=== PATIENT | female | born 1975 | race Caucasian/White ===

== ENCOUNTER → 2022-03-05 13:48 | Outpatient (BNVA) | payer OTHER, SELFPAY | PROVIDERS: Family Provider Family Medicine; PCP Clinical Nurse Specialist Adult Health; Visit Provider Clinical Nurse Specialist Adult Health | DX: R19.7 Diarrhea, unspecified (principal) | CPT/HCPCS: 83630; 87177; 87209; 87338; 87493; 87506 ==

== ENCOUNTER 2022-05-21 10:09 | Day surgery (SDC) | payer OTHER, SELFPAY ==
[2022-05-19 13:38] VITALS: BMI 19.1
[2022-05-21 10:36] VITALS: BP 100/78; PULSE 100; RESP 18; TEMP 36.1; O2SAT 95
--- NOTE | 2022-05-21 10:52 | ANES.PREANE2 ---
Pre-Anesthetic Assessment Height/Weight: Height 1.65 m Weight 52.163 kg Temp Pulse Resp BP Pulse Ox O2 Del Method 97.0 F L 100 18 100/78 95 05/21/22 10:36 05/21/22 10:36 05/21/22 10:36 05/21/22 10:36 05/21/22 10:36 05/21/22 10:36 Operation Date: 05/21/22 11:30 Proposed Procedures p EGD and colonoscopy [id number],R19.7(Not Applicable) - Thuan Will DO s Colonoscopy(Not Applicable) - Thuan Will DO Familial anesthetic complications: None Was Beta Ruiz taken within 24 hours: N/A Was Clonidine taken within 24 hours: N/A Last intake: Intake Last Liquid Date 05/20/22 Last Liquid Time 20:00 Last Solid Date 05/19/22 Last Solid Time 18:00 Social No alcohol and No tobacco marijuana Exam alert, oriented x 3, clear to auscultation bilaterally and regular rate & rhythm Airway Mallampati: Class II Dentition: false GI Gastroesophageal Reflux Disease Neuropsych Anxiety, Bipolar and Depression Anesthetic Plan ASA status: 2 Anesthesia: MAC Risk of > 500 ml blood loss (7ml/kg in children): No Medications/Allergies Home Medications Medication Instructions Recorded Confirmed Last Taken Type clonazepam 2 mg tablet 2 mg PO DAILY PRN Anxiety 02/25/22 05/21/22 05/21/22 History omeprazole 40 mg capsule,delayed 40 mg PO DAILY #30 caps 02/25/22 05/21/22 Unknown Rx release vilazodone 40 mg tablet 40 mg PO DAILY 02/25/22 05/21/22 05/21/22 History olanzapine 5 mg tablet 5 mg PO QPM 05/19/22 05/21/22 05/19/22 History Allergies Allergy/AdvReac Type Severity Reaction Status Date / Time No Known Allergies Allergy Unverified 05/21/22 10:35 [facility] Anesthesia Medical History (Updated 03/04/22 @ 10:26 by Thuan Will DO) Bipolar disorder Cannabis dependence, uncomplicated Lymphadenopathy Major depressive disorder, recurrent severe without psychotic features Panic disorder [episodic paroxysmal anxiety] Surgical History (Updated 03/04/22 @ 10:20 by Thuan Will DO) History of hysterectomy Hx of lymph node excision LEFT GROIN AGE 18 Family History Mother Diabetes Social History Smoking and tobacco status: former smoker Alcohol intake: never Data Anesthesia Cardiac Studies: No Data to Display
[2022-05-21] MEDS: sodium chloride 0.9% 1,000 ML 30 ML IV (10:56)
--- NOTE | 2022-05-21 12:07 | PM.HP ---
Providers/Chief Complaint Primary Care Provider: Dontrell Ansari Chief Complaint: Diarrhea, unspecified History of Present Illness Gabriela Baig is a 46 year old female here for EGD and colonoscopy Medications/Allergies Home Medications Medication Instructions Recorded Confirmed Last Taken Type clonazepam 2 mg tablet 2 mg PO DAILY PRN Anxiety 02/25/22 05/21/22 05/21/22 History omeprazole 40 mg capsule,delayed 40 mg PO DAILY #30 caps 02/25/22 05/21/22 Unknown Rx release vilazodone 40 mg tablet 40 mg PO DAILY 02/25/22 05/21/22 05/21/22 History olanzapine 5 mg tablet 5 mg PO QPM 05/19/22 05/21/22 05/19/22 History Allergies Allergy/AdvReac Type Severity Reaction Status Date / Time No Known Allergies Allergy Unverified 05/21/22 10:35 PFSH Acute PFSH: Medical History (Updated 03/04/22 @ 10:26 by Thuan Will DO) Bipolar disorder Cannabis dependence, uncomplicated Lymphadenopathy Major depressive disorder, recurrent severe without psychotic features Panic disorder [episodic paroxysmal anxiety] Surgical History (Updated 03/04/22 @ 10:20 by Thuan Will DO) History of hysterectomy Hx of lymph node excision LEFT GROIN AGE 18 Family History Mother Diabetes Social History Smoking and tobacco status: former smoker Alcohol intake: never Vitals/I&O/Wt Last Vital Signs Temp 97.0 F L 05/21/22 10:36 Pulse 100 05/21/22 10:36 Resp 18 05/21/22 10:36 BP 100/78 05/21/22 10:36 Pulse Ox 95 05/21/22 10:36 O2 Del Method 05/21/22 10:36 Weight last 48 hrs Weight 115 lb A&P Assessment and plan (1) Abdominal pain: (2) Diarrhea: Plan EGD and colonoscopy with random biopsies Attestations Medical Necessity Statement*: Home Coding Level of Care Code Acute Business Coordinator for Chg Fwd Diagnoses Abdominal pain R10.9 Diarrhea R19.7
[2022-05-21 12:39] VITALS: BP 124/89; PULSE 96; RESP 16; TEMP 36.1; O2SAT 97
[2022-05-21 12:46] VITALS: BP 124/86; PULSE 86; RESP 16; O2SAT 96
--- NOTE | 2022-05-21 12:51 | PC.NURSE ---
patient very teary, mom at bedside. denies pain.
[2022-05-21 12:56] VITALS: BP 129/88; PULSE 83; RESP 18; O2SAT 97
--- NOTE | 2022-05-21 13:53 | ANE.PACU2 ---
Inpatient post-anesthesia follow up: Airway intact: Yes Vital signs: Temperature 97.0 F Pulse Rate 83 Respiratory Rate 18 Blood Pressure 129/88 Pulse Oximetry 97 Oxygen Delivery Me thod Room Air Oxygen Flow Rate Fraction of Inspir ed Oxygen Hydration adequate: Yes Nausea and vomiting: No Pain level: 1 Mental status: Baseline
== END 2022-05-21 13:15 | disposition home or self-care (01) ==
PROVIDERS: PCP Clinical Nurse Specialist Adult Health; Visit Provider Surgery
PROC: 0DJ08ZZ Inspection of Upper Intestinal Tract, Via Natural or Artificial Opening Endoscopic (ICD-10-PCS; CPT 43235; principal; 2022-05-21 11:30)
PROC: 0DJD8ZZ Inspection of Lower Intestinal Tract, Via Natural or Artificial Opening Endoscopic (ICD-10-PCS; CPT 45378; 2022-05-21 11:30)
DX: R19.7 Diarrhea, unspecified (principal); K44.9 Diaphragmatic hernia without obstruction or gangrene; K29.50 Unspecified chronic gastritis without bleeding; K21.9 Gastro-esophageal reflux disease without esophagitis; F32.A Depression, unspecified; F41.9 Anxiety disorder, unspecified; Z87.891 Personal history of nicotine dependence
CPT/HCPCS: 43239; 45380; 82274; 83630; 87493; 87506; 88305; J2250; J2704; J7030

== ENCOUNTER → 2022-09-29 11:33 | Outpatient (BNVA) | payer BC, SELFPAY | PROVIDERS: PCP Clinical Nurse Specialist Adult Health; Visit Provider Nurse Practitioner Psychiatric/Mental Health | DX: Z79.899 Other long term (current) drug therapy (principal); F33.41 Major depressive disorder, recurrent, in partial remission; F41.0 Panic disorder [episodic paroxysmal anxiety] | CPT/HCPCS: 80306 ==

== ENCOUNTER 2022-12-26 04:02 | Emergency (ER) | payer BC, MEDICAID, SELFPAY ==
[2022-12-26 04:08] VITALS: BP 122/78; PULSE 89; RESP 16; TEMP 36.9; O2SAT 96
--- NOTE | 2022-12-26 04:12 | ED_ITS ---
HPI - Abdominal Pain General: Chief Complaint: Abdominal Pain Stated Complaint: lower back and abd pain, vomiting Time Seen by Provider: 12/26/22 04:09 Source: patient Mode of arrival: ambulatory Limitations: no limitations History of Present Illness: 47-year-old female states she has had some low back pain along with abdominal cramping since 1 AM. States is worse in her right lower back worse with touch. She had 2 episodes of vomiting states she has had a cramping pain all over her abdomen she rates her pain a 4 out of 10 currently she denies any fever denies any dysuria. Associated Symptoms: Reports nausea and vomiting; Denies chills, diarrhea, dysuria and fever(s) Review of Systems Const: Denies: fever(s), chills or body aches ENMT: Denies: throat pain or dental pain Card: Denies: chest pain Resp: Denies: dyspnea GI: Reports: abdominal pain, nausea and vomiting; Denies: diarrhea : Denies: dysuria Musc: Reports: back pain; Denies: neck pain Skin/Breast: Denies: rash Neuro: Denies: headache(s) Psych: Denies: depression PFSH ED PFSH: Medical History Bipolar disorder Cannabis dependence, uncomplicated Lymphadenopathy Major depressive disorder, recurrent severe without psychotic features Major depressive disorder, recurrent, in partial remission Panic disorder [episodic paroxysmal anxiety] Psychiatric care Surgical History History of hysterectomy Hx of colonoscopy 05/2022-next one in 10 years Hx of esophagogastroduodenoscopy 05/2022-gastritis H Pylori negative Hx of lymph node excision LEFT GROIN AGE 18 Family History Mother Diabetes Social History Smoking and tobacco status: former smoker Alcohol intake: never Physical Exam Const: COMMON NORMALS: no acute distress, patient oriented x3 and healthy appearing HENMT: COMMON NORMALS: normocephalic and atraumatic HEAD & SCALP: normocephalic and atraumatic Neck/C-Spine: COMMON NORMALS: full ROM and supple Chest: COMMONS NORMALS: normal inspection of the chest and normal palpation of entire chest wall Resp: COMMON NORMALS: normal respiratory effort, No retractions, No use of a ccessory muscles and clear to auscultation bilaterally AUSCULTATION: clear to auscultation bilaterally Cardio: COMMON NORMALS: regular rate, regular rhythm and No murmurs present (Cardio) RATE: regular rate RHYTHM: regular rhythm GI: COMMON NORMALS: Normal to inspection, nondistended, normoactive bowel sounds present, Soft to palpation, non-tender and no masses PALPATION: Yes Soft to palpation Back/Pelvis: OTHER: right lower lumbar tenderness Extremity: COMMON NORMALS: normal to inspection and full ROM Neuro: COMMON NORMALS: patient oriented x3, moves all extremities and no focal motor deficits Psych: COMMON NORMALS: mental status grossly normal, Normal thought process present and cooperative THOUGHT PROCESS: Normal thought process present Skin: COMMON NORMALS: no rashes or lesions noted and no wounds GENERAL SKIN EXAM: no rashes or lesions noted Course Vital Signs: Vital signs: Vital Signs Temperature 98.4 F 12/26/22 04:08 Pulse Rate 72 12/26/22 04:30 Respiratory Rate 16 12/26/22 04:30 Blood Pressure 116/76 12/26/22 04:30 Pulse Oximetry 95 12/26/22 04:30 Oxygen Delivery Me thod Room Air 12/26/22 04:08 MDM - Abdominal Pain Medical Decision Making Patient presents here with back pain along with some abdominal pain back pain seems likely muscular abdominal exam is benign her blood work here is normal including normal white count her pain is resolved after Toradol and Zofran her repeat abdominal exam at discharge is benign we will prescribe her Bentyl and Zofran she is stable for discharge she is to follow-up with her PCP informed her she has worsening pain or fever or vomiting she is to return she understands agrees to plan. Medical Records I reviewed the patient's medical records. Lab Data I reviewed the patient's lab results. 12/26/22 04:19 12/26/22 04:19 Labs/Radiology: Laboratory Results WBC 7.3 10^3/uL (4.0-10.0) 12/26/22 04:19 RBC 4.89 10^6/uL (4.1-5.3) 12/26/22 04:19 Hgb 14.5 g/dL (11.5-15.3) 12/26/22 04:19 Hct 43.3 % (37.0-47.0) 12/26/22 04:19 MCV 88.5 fl (81-99) 12/26/22 04:19 MCH 29.7 pg (28.0-34.0) 12/26/22 04:19 MCHC 33.5 g/dL (30.0-36.0) 12/26/22 04:19 RDW 12.1 % (12.1-15.1) 12/26/22 04:19 Plt Count 229 10^3/cmm (130-400) 12/26/22 04:19 MPV 9.8 fL (7.4-10.4) 12/26/22 04:19 Neut % (Auto) 74.7 % 12/26/22 04:19 Lymph % (Auto) 14.8 % 12/26/22 04:19 [place] % (Auto) 5.8 % 12/26/22 04:19 Eos % (Auto) 3.6 % 12/26/22 04:19 Baso % (Auto) 0.8 % 12/26/22 04:19 Neut # (Auto) 5.42 10^3/uL (1.8-7.7) 12/26/22 04:19 Lymph # (Auto) 1.1 10^3/uL (0.8-4.8) 12/26/22 04:19 [place] # (Auto) 0.4 10^3/uL (0.2-0.9) 12/26/22 04:19 Eos # (Auto) 0.3 10^3/uL (0.0-0.8) 12/26/22 04:19 Baso # (Auto) 0.1 10^3/uL (0.0-0.1) 12/26/22 04:19 Nucleated RBC % (auto) 0 % 12/26/22 04:19 Nucleated RBCs # 0.0 /100WBC 12/26/22 04:19 Sodium 140 mmol/L (136-145) 12/26/22 04:19 Potassium 3.9 mmol/L (3.5-5.1) 12/26/22 04:19 Chloride 106 mmol/L (98-107) 12/26/22 04:19 Carbon Dioxide 24 mmol/L (22-29) 12/26/22 04:19 Anion Gap 13.9 (5-19) 12/26/22 04:19 BUN 11 mg/dL (6-20) 12/26/22 04:19 Creatinine 0.6 mg/dL (0.5-0.9) 12/26/22 04:19 GFR Calculation 108.1 mL/min (90-130) 12/26/22 04:19 Glucose 104 mg/dL (65-115) 12/26/22 04:19 Calculated Osmolality 290 mOsm/kg (285-295) 12/26/22 04:19 Calcium 9.8 mg/dL (8.5-10.5) 12/26/22 04:19 Total Bilirubin 0.3 mg/dL (0.15-1.2) 12/26/22 04:19 AST 19 U/L (0-32) 12/26/22 04:19 ALT 21 U/L (0-33) 12/26/22 04:19 Alkaline Phosphatase 117 U/L (35-105) H 12/26/22 04:19 Total Protein 7.2 g/dL (6.6-8.7) 12/26/22 04:19 Albumin 4.3 g/dL (3.5-5.2) 12/26/22 04:19 Globulin 2.9 g/dL (1.3-4.6) 12/26/22 04:19 Lipase 48 U/L (13-60) 12/26/22 04:19 Urine Color Light yellow (Yellow) 12/26/22 04:21 Urine Appearance Clear (CLEAR) 12/26/22 04:21 Urine pH 5 (5-7) 12/26/22 04:21 Ur Specific [place] 1.020 (1.005-1.030) 12/26/22 04:21 Urine Protein Neg (Negative) 12/26/22 04:21 Urine Glucose (UA) Norm (Normal) 12/26/22 04:21 Urine Ketones Negative (Negative) 12/26/22 04:21 Urine Blood Neg (Negative) 12/26/22 04:21 Urine Nitrate Negative (Negative) 12/26/22 04:21 Urine Bilirubin Neg (Negative) 12/26/22 04:21 Urine Urobilinogen Neg mg/dL (Negative) 12/26/22 04:21 Ur Leukocyte Esterase Trace (Negative) H 12/26/22 04:21 Urine RBC None /hpf (0-2) 12/26/22 04:21 Urine WBC 0-4 /hpf (0-5) H 12/26/22 04:21 Ur Squamous Epith Cells 0-4 /hpf (0-5) H 12/26/22 04:21 Amorphous Sediment Not Reportable 12/26/22 04:21 Urine Bacteria 1+ /hpf (NONE) H 12/26/22 04:21 Urine Mucus 2+ /hpf 12/26/22 04:21 Discharge Plan Discharge Patient Disposition: Home Clinical Impression: Back pain, Abdominal pain Condition: Stable Prescriptions: New ondansetron 4 mg tablet,disintegrating 4 mg PO Q6H PRN (Reason: nausea and vomiting) Qty: 14 0RF dicyclomine 20 mg tablet 20 mg PO TID Qty: 20 0RF No Action clonazepam 0.5 mg tablet 0.5 mg PO .q hs PRN (Reason: anxiety/insomnia) Qty: 30 1RF Rx Instructions: Take one tablet daily at bedtime, if needed for anxiety olanzapine 7.5 mg tablet 7.5 mg PO .q hs Qty: 30 1RF Rx Instructions: Take one tablet daily at bedtime clonazepam 2 mg tablet 2 mg PO .q am PRN (Reason: panic/anxiety) Qty: 30 1RF Rx Instructions: Take one tablet by mouth every morning, if needed for panic/anxiety vilazodone [Viibryd] 40 mg tablet 40 mg PO QAM Qty: 30 1RF Rx Instructions: must administer with a meal/food Discharge Orders: Discharge ED (Routine); Ordered 12/26/22 Ordered By: Moe Pacheco Referrals: Dontrell Ansari STYRENE DEHYDRATION REACTOR OPERATOR [Primary Care Provider] - 1-3 days Discharge Diet: Advance as tolerated Discharge Activity: Resume usual activity Patient Instructions: Abdominal Pain (ED), Back Pain (ED) Coding Level of Care Code ED Perfume Maker for Dell Durant
[2022-12-26 04:27] LABS: Basophils # 0.1 10^3/uL (0.0-0.1); Basophils % 0.8 %; Eosinophils # 0.3 10^3/uL (0.0-0.8); Eosinophils % 3.6 %; Hematocrit 43.3 % (37.0-47.0); Hemoglobin 14.5 g/dL (11.5-15.3); Lymphocytes # 1.1 10^3/uL (0.8-4.8); Lymphocytes % 14.8 %; Mean Corpuscular HGB Conc 33.5 g/dL (30.0-36.0); Mean Corpuscular Hemoglobin 29.7 pg (28.0-34.0); Mean Corpuscular Volume 88.5 fl (81-99); Mean Platelet Volume 9.8 fL (7.4-10.4); Monocytes # 0.4 10^3/uL (0.2-0.9); Monocytes % 5.8 %; Neutrophils # 5.42 10^3/uL (1.8-7.7); Neutrophils % 74.7 %; Nucleated Red Blood Cells % 0 %; Platelet Count 229 10^3/cmm (130-400); Red Blood Count 4.89 10^6/uL (4.1-5.3); Red Cell Distribution Width 12.1 % (12.1-15.1); White Blood Count 7.3 10^3/uL (4.0-10.0)
[2022-12-26] MEDS: ondansetron 2 mg/ML SDV 2 mL 4 MG IVP (04:27)
[2022-12-26] MEDS: sodium chloride 0.9% 1,000 ML 999 ML IV (04:27)
[2022-12-26] MEDS: ketorolac 30 mg/mL INJ IVP (04:28)
[2022-12-26 04:30] VITALS: BP 116/76; PULSE 72; RESP 16; O2SAT 95
[2022-12-26 04:39] LABS: Glucose Urine UA Norm (Normal); Protein Urine Neg (Negative); Urine Appearance Clear (CLEAR); Urine Color Light yellow (Yellow); pH Urine 5 (5-7)
[2022-12-26 04:40] LABS: Add Urine Culture? No; Add Urine Microscopic? YES; Bacteria Urine 1+ /hpf; Bilirubin Urine Neg (Negative); Blood Urine Neg (Negative); Ketones Urine Negative (Negative); Leukocyte Esterase Urine Trace (Negative); Mucus Urine 2+ /hpf; Nitrate Urine Negative (Negative); Squamous Epithelial Cell Urine 0-4 /hpf (0-5); Urobilinogen Urine Neg (Negative); WBC Urine 0-4 /hpf (0-5)
[2022-12-26 04:45] LABS: Alanine Aminotransferase 21 U/L (0-33); Albumin Level 4.3 g/dL (3.5-5.2); Alkaline Phosphatase 117 U/L (35-105); Anion Gap 13.9 (5-19); Aspartate Amino Transferase 19 U/L (0-32); Blood Urea Nitrogen 11 mg/dL (6-20); Calcium 9.8 mg/dL (8.5-10.5); Carbon Dioxide 24 mmol/L (22-29); Chloride 106 mmol/L (98-107); Globulin 2.9 g/dL (1.3-4.6); Glomerular Filtration Rate 108.1 mL/min (90-130); Glucose 104 mg/dL (65-115); Lipase 48 U/L (13-60); Osmolality Calculated 290 mOsm/kg (285-295); Potassium 3.9 mmol/L (3.5-5.1); Sodium 140 mmol/L (136-145); Total Bilirubin 0.3 mg/dL (0.15-1.2); Total Protein 7.2 g/dL (6.6-8.7)
[2022-12-26 05:17] VITALS: BP 101/65; PULSE 77; RESP 16; O2SAT 96
== END 2022-12-26 05:18 | disposition home or self-care (01) ==
PROVIDERS: Emergency Provider Emergency Medicine; PCP Clinical Nurse Specialist Adult Health
DX: M54.50 Low back pain, unspecified (principal); R10.84 Generalized abdominal pain; Z87.891 Personal history of nicotine dependence
CPT/HCPCS: 80053; 81001; 83690; 85025; 96374; 96375; 99284; J1885; J2405; J7030

== ENCOUNTER 2023-02-11 11:56 | Outpatient (CLI) | payer BC, MEDICAID, SELFPAY ==
--- NOTE | 2023-02-11 12:07 | XR_ITS ---
WS: [id number] XR abdomen min 2V [id number] REASON FOR EXAM: abdominal pain and cramping FINDINGS: Unremarkable bowel gas pattern. No free air or retroperitoneal air. Significant hepatomegaly. No mass identified. No significant abdominal or pelvic calcification noted. XR/XR abdomen min 2V [id number] IMPRESSION: Significant hepatomegaly.
== END 2023-02-11 11:57 | disposition home or self-care (01) ==
PROVIDERS: PCP Clinical Nurse Specialist Adult Health; Visit Provider Clinical Nurse Specialist Adult Health
DX: R10.9 Unspecified abdominal pain (principal); R19.7 Diarrhea, unspecified; R16.0 Hepatomegaly, not elsewhere classified
CPT/HCPCS: 74019

== ENCOUNTER 2023-03-13 08:44 | Outpatient (CLI) | payer BC, MEDICAID, SELFPAY ==
--- NOTE | 2023-03-13 09:00 | CT_ITS ---
WS: [id number] CT ABDOMEN AND PELVIS NONCONTRAST HISTORY: abdominal pain TECHNIQUE: Imaging performed through the abdomen and pelvis. Coronal and sagittal reformats are submi tted. All CT scans at [facility] use at least one of these dose optimization techniques: auto mated exposure control; mA and/or kV adjustment per patient size (includes targeted exams where dose is matched to clinical indication); or iterative reconstruction. DLP: 259.49 mGy.cm COMPARISON: None available. Lower thorax: Lung bases are clear. Visualized heart is normal. No hiatal hernia. Liver: Mild hepatomegaly. Liver measures 17 cm in length. No mass or bile duct dilatation. Gallbladder: In the gallbladder fossa there is soft tissue thickening which is probably a contracted gallbladder containing stones. No adjacent pericholecystic fluid. Pancreas: Normal size and attenuation. Normal pancreatic duct. No pancreatitis or mass. Spleen: Normal. Adrenal glands: Normal. No mass. Right kidney: Normal size kidney with no mass or hydronephrosis. Left kidney: Normal size kidney with no mass or hydronephrosis. Aorta: Normal abdominal aorta, no aneurysm or atherosclerosis. No free fluid, intraperitoneal air or significant lymphadenopathy. GI tract: Normal noncontrast imaging of the stomach, small bowel and colon. No obstruction or wall th ickening. Appendix not identified. Abdominal wall: Negative. No hernia. Pelvis: Prior hysterectomy. Osseous structures: Unremarkable. IMPRESSION: 1. Mild hepatomegaly. 2. Contracted gallbladder with stones. No adjacent inflammation. Recommend surgical consultation. 3. Prior hysterectomy.
== END 2023-03-13 08:45 | disposition home or self-care (01) ==
LOC: RAD 08:47
PROVIDERS: PCP Clinical Nurse Specialist Adult Health; Visit Provider Clinical Nurse Specialist Adult Health
DX: R10.32 Left lower quadrant pain (principal); K80.20 Calculus of gallbladder without cholecystitis without obstruction; R16.0 Hepatomegaly, not elsewhere classified; Z90.710 Acquired absence of both cervix and uterus
CPT/HCPCS: 74176

== ENCOUNTER 2024-01-11 07:09 | Outpatient (CLI) | payer BC, SELFPAY ==
[2024-01-11 08:17] LABS: Alanine Aminotransferase 19 U/L (0-33); Albumin Level 4.2 g/dL (3.5-5.2); Alkaline Phosphatase 90 U/L (35-105); Anion Gap 13.9 (5-19); Aspartate Amino Transferase 17 U/L (0-32); Blood Urea Nitrogen 10 mg/dL (6-20); Calcium 9.1 mg/dL (8.5-10.5); Carbon Dioxide 28 mmol/L (22-29); Chloride 108 mmol/L (98-107); Cholesterol 183 mg/dL (0-200); Globulin 2.7 g/dL (1.3-4.6); Glomerular Filtration Rate 90.1 mL/min (90-130); Glucose 87 mg/dL (65-115); HDL Cholesterol 63 mg/dL (60-100); LDL Cholesterol Calculated 109 mg/dL (50-129); LDL HDL Ratio 1.73 RATIO (0.00-3.22); Osmolality Calculated 298 mOsm/kg (285-295); Potassium 4.9 mmol/L (3.5-5.1); Sodium 145 mmol/L (136-145); Total Bilirubin 0.4 mg/dL (0.15-1.2); Total Protein 6.9 g/dL (6.6-8.7); Triglycerides 54 mg/dL (0-150)
[2024-01-11 09:00] LABS: Estmated Average Glucose 94; Hemoglobin A1C 4.9 % (4.0-6.0)
== END 2024-01-11 07:10 | disposition home or self-care (01) ==
LOC: LAB 07:10
PROVIDERS: PCP Clinical Nurse Specialist Adult Health; Visit Provider Nurse Practitioner Psychiatric/Mental Health
DX: Z79.899 Other long term (current) drug therapy (principal)
CPT/HCPCS: 36415; 80053; 80061; 83036

== ENCOUNTER → 2025-01-02 10:54 | Outpatient (BNVA) | payer BC, SELFPAY | PROVIDERS: PCP Clinical Nurse Specialist Adult Health; Visit Provider Nurse Practitioner Psychiatric/Mental Health | DX: Z79.899 Other long term (current) drug therapy (principal) | CPT/HCPCS: 80053; 80061; 83036; 85025 ==

== ENCOUNTER → 2025-03-01 08:42 | Outpatient (BNVA) | payer BC, SELFPAY | PROVIDERS: PCP Clinical Nurse Specialist Adult Health; Visit Provider Nurse Practitioner Psychiatric/Mental Health | DX: Z79.899 Other long term (current) drug therapy (principal) | CPT/HCPCS: 85025 ==

== ENCOUNTER 2025-03-15 10:56 | Emergency (ER) | payer BC, MEDICAID, SELFPAY ==
[2025-03-15 11:00] VITALS: BP 105/69; PULSE 60; TEMP 36.4; O2SAT 100
[2025-03-15 11:22] LABS: Hematocrit 44.6 % (36-47); Hemoglobin 15.10 g/dL (11.27-16.99); Mean Corpuscular HGB Conc 33.9 g/dL (30-55); Mean Corpuscular Hemoglobin 30.3 pg (27-33); Mean Corpuscular Volume 89.6 fl (85-98); Nucleated Red Blood Cells % 0 %; Platelet Count 284 10^3/cmm (157-399); Red Blood Count 4.98 10^6/uL (3.85-5.65); White Blood Count 9.86 10^3/uL (3.29-11.43)
--- NOTE | 2025-03-15 11:37 | ED_ITS ---
HPI - Abdominal Pain 2 General: Chief Complaint: Abdominal Pain Stated Complaint: n/v, abd pain Time Seen by Provider: 03/15/25 11:12 Source: patient Mode of arrival: ambulatory Limitations: no limitations History of Present Illness: 49-year-old female states she has a hist ory of GERD and gastritis in the past states she started having epigastric Kavon pain started this morning she had 2 episodes of vomiting as well states the pain is sharp in nature rates it a 6 out of 10 she denies any worse improving factors denies any fevers Associated Symptoms: Reports nausea and vomiting; Denies chills, diarrhea, dysuria and fever(s) Related Data Previous Rx's ?Medication ?Instructions ?Recorded omeprazole 20 mg capsule,delayed 20 mg PO BID 90 days #180 caps 08/16/24 release clonazepam 2 mg tablet 2 mg PO QAM PRN panic/anxiet y #30 01/02/25 tabs lurasidone 20 mg tablet 20 mg PO DAILY #30 tabs 09/27 lurasidone 80 mg tablet See Rx Instructions .Route 0 01/02/25 .COMPLEX #30 tabs vortioxetine 20 mg tablet See Rx Instructions .Route 0 03/09/25 (Trintellix) .COMPLEX #30 tabs ondansetron 4 mg disintegrating 4 mg PO Q6H PRN nausea and 03/15/25 tablet vomiting #14 tabs sucralfate 1 gram tablet 1 g PO BID 4 weeks #56 tabs 03/15/25 Allergies Allergy/AdvReac Type Severity Reaction Status Date / Time No Known Allergies Allergy Verified 03/15/25 11:05 Review of Systems 2 Const: Denies: fever(s), chills, body aches or change in appetite ENMT: Denies: throat pain or dental pain Card: Denies: chest pain Resp: Denies: dyspnea GI: Reports: abdominal pain, nausea and vomiting; Denies: diarrhea : Denies: dysuria Musc: Denies: neck pain or back pain Skin/Breast: Denies: rash Neuro: Denies: headache(s) PFSH ED 2 PFSH: Medical History Cholelithiasis Mammogram declined GERD (gastroesophageal reflux disease) Hepatomegaly Major depressive disorder, recurrent episode Major depressive disorder, recurrent, in partial remission Psychiatric care Bipolar disorder Panic disorder [episodic paroxysmal anxiety] Cannabis dependence, uncomplicated Major depressive disorder, recurrent severe without psychotic features Surgical History (Updated 08/16/24 @ 12:53 by Dontrell Ansari NP) Hx of esophagogastroduodenoscopy 05/2022-gastritis H Pylori negative Hx of colonoscopy 05/2022-next one in 10 years Hx of lymph node excision LEFT GROIN AGE 18 History of hysterectomy complete hysterectomy for benign reasons. Family History Mother Diabetes Social History Smoking and tobacco/nicotine status: former use of tobacco/nicotine Alcohol intake: never Physical Exam 2 Const: COMMON NORMALS: no acute distress, patient oriented x3 and healthy appearing HENMT: COMMON NORMALS: normocephalic and atraumatic HEAD & SCALP: n ormocephalic and atraumatic Eye: COMMON NORMALS: Equal, round and reactive pupils present and EOMs intact bilaterally PUPIL: Yes Equal, round and reactive pupils present Neck/C-Spine: COMMON NORMALS: full ROM and supple Chest: COMMONS NORMALS: normal inspection of the chest and normal palpation of entire chest wall Resp: COMMON NORMALS: normal respiratory effort, No retractions, No use of accessory muscles and clear to auscultation bilaterally AUSCULTATION: clear to auscultation bilaterally Cardio: COMMON NORMALS: regular rate, regular rhythm and No murmurs present (Cardio) RATE: regular rate RHYTHM: regular rhythm GI: COMMON NORMALS: Normal to inspection, nondistended, normoactive bowel sounds present, Soft to palpation, non-tender and no masses PALPATION: Yes Soft to palpation Extremity: COMMON NORMALS: normal to inspection and full ROM Neuro: COMMON NORMALS: patient oriented x3, moves all extremities and no focal motor deficits Psych: COMMON NORMALS: mental status grossly normal, Normal thought process present and cooperative THOUGHT PROCESS: Normal thought process present Skin: COMMON NORMALS: no rashes or lesions noted and no wounds GENERAL SKIN EXAM: no rashes or lesions noted Course 2 Vital Signs: Vital signs: Vital Signs Temperature 97.6 F 03/15/25 11:00 Pulse Rate 66 03/15/25 11:51 Respiratory Rate 16 03/15/25 11:51 Blood Pressure 108/69 03/15/25 11:51 Pulse Oximetry 99 03/15/25 11:51 Oxygen Delivery Me thod Room Air 03/15/25 11:51 MDM - Abdominal Pain Medical Decision Making Patient presents for abdominal pain was resolved with a GI cocktail likely gastritis will place on sulcal fate will get follow-up with surgery blood work here is normal she is return if worsening. Medical Records I reviewed the patient's medical records. Lab Data I reviewed the patient's lab results. 03/15/25 11:15 03/15/25 11:15 Labs/Radiology: Laboratory Results WBC 9.86 10^3/uL (3.29-11.43) 03/15/25 11:15 RBC 4.98 10^6/uL (3.85-5.65) 03/15/25 11:15 Hgb 15.10 g/dL (11.27-16.99) 03/15/25 11:15 Hct 44.6 % (36-47) 03/15/25 11:15 MCV 89.6 fl (85-98) 03/15/25 11:15 MCH 30.3 pg (27-33) 03/15/25 11:15 MCHC 33.9 g/dL (30-55) 03/15/25 11:15 RDW 13.1 % (12.1-15.1) 03/15/25 11:15 Plt Count 284 10^3/cmm (157-399) 03/15/25 11:15 MPV 9.7 fL (7.4-10.4) 03/15/25 11:15 Neut % (Auto) 80.1 % 03/15/25 11:15 Lymph % (Auto) 12.6 % 03/15/25 11:15 [place] % (Auto) 5.9 % 03/15/25 11:15 Eos % (Auto) 0.7 % 03/15/25 11:15 Baso % (Auto) 0.4 % 03/15/25 11:15 Neut # (Auto) 7.90 10^3/uL (1.8-7.7) H 03/15/25 11:15 Lymph # (Auto) 1.2 10^3/uL (0.8-4.8) 03/15/25 11:15 [place] # (Auto) 0.6 10^3/uL (0.2-0.9) 03/15/25 11:15 Eos # (Auto) 0.1 10^3/uL (0.0-0.8) 03/15/25 11:15 Baso # (Auto) 0.0 10^3/uL (0.0-0.1) 03/15/25 11:15 Nucleated RBC % (auto) 0 % 03/15/25 11:15 Nucleated RBCs # 0.0 /100WBC 03/15/25 11:15 Sodium 141 mmol/L (136-145) 03/15/25 11:15 Potassium 3.6 mmol/L (3.5-5.1) 03/15/25 11:15 Chloride 103 mmol/L (98-107) 03/15/25 11:15 Carbon Dioxide 23 mmol/L (22-29) 03/15/25 11:15 Anion Gap 18.6 (5-19) 03/15/25 11:15 BUN 10 mg/dL (6-20) 03/15/25 11:15 Creatinine 0.7 mg/dL (0.5-0.9) 03/15/25 11:15 GFR Calculation 89.7 mL/min (90-130) L 03/15/25 11:15 Glucose 134 mg/dL (65-115) H 03/15/25 11:15 Calculated Osmolality 293 mOsm/kg (285-295) 03/15/25 11:15 Calcium 9.7 mg/dL (8.5-10.5) 03/15/25 11:15 Total Bilirubin 1.0 mg/dL (0.15-1.2) 03/15/25 11:15 AST 95 U/L (0-32) H 03/15/25 11:15 ALT 49 U/L (0-33) H 03/15/25 11:15 Alkaline Phosphatase 153 U/L (35-105) H 03/15/25 11:15 Total Protein 7.2 g/dL (6.6-8.7) 03/15/25 11:15 Albumin 4.3 g/dL (3.5-5.2) 03/15/25 11:15 Globulin 2.9 g/dL (1.3-4.6) 08/13/25 11:15 Lipase 33 U/L (13-60) 03/15/25 11:15 HCG, Qual Negative (Negative) 03/15/25 11:15 All radiology interpretation(s) finalized by discharge Discharge Plan Discharge Patient Disposition: Home Clinical Impression: Abdominal pain Condition: Stable Prescriptions: New ondansetron 4 mg tablet,disintegrating 4 mg PO Q6H PRN (Reason: nausea and vomiting) Qty: 14 0RF sucralfate 1 gram tablet 1 g PO BID 28 Days Qty: 56 0RF No Action omeprazole 20 mg capsule,delayed release(DR/EC) 20 mg PO BID 90 Days Qty: 180 3RF lurasidone 80 mg tablet See Rx Instructions .ROUTE .COMPLEX Qty: 30 1RF Dose Instruction: TAKE 1 TABLET BY MOUTH ONCE DAILY MUST ADMINISTER WITH FOOD (AT LEAST 350 CALORIES) Rx Instructions: Take 1 tablet by once daily (with 20 mg dose); take with food/snack, at least 350 calories lurasidone 20 mg tablet 20 mg PO DAILY Qty: 30 1RF Rx Instructions: Take 1 tablet daily with the 80 mg dose-take with food or snack of at least 350 calories clonazepam 2 mg tablet 2 mg PO QAM PRN (Reason: panic/anxiety) Qty: 30 0RF Rx Instructions: Take one tablet by mouth every morning, if needed for anxiety/panic symptoms Trintellix 20 mg tablet See Rx Instructions .ROUTE .COMPLEX Qty: 30 0RF Dose Instruction: TAKE 1 TABLET BY MOUTH ONCE DAILY IN THE MORNING (STOP 10 MG DOSE) Rx Instructions: TAKE 1 TABLET BY MOUTH ONCE DAILY IN THE MORNING (STOP 10 MG DOSE) Discharge Orders: Discharge ED (Routine); Ordered 03/15/25 Ordered By: Moe Pacheco Referrals: Eh Carter MD [Physician, General Surgery] - 4-7 days Dontrell Ansari NP [Primary Care Provider, Family Practice] Discharge Diet: Advance as tolerated Discharge Activity: Resume usual activity Patient Instructions: Abdominal Pain (ED) Print Language: Syriac Coding Level of Care Code ED Epic Willow Specialist for Dell Durant
[2025-03-15 11:38] LABS: Alanine Aminotransferase 49 U/L (0-33); Albumin Level 4.3 g/dL (3.5-5.2); Alkaline Phosphatase 153 U/L (35-105); Anion Gap 18.6 (5-19); Aspartate Amino Transferase 95 U/L (0-32); Blood Urea Nitrogen 10 mg/dL (6-20); Calcium 9.7 mg/dL (8.5-10.5); Carbon Dioxide 23 mmol/L (22-29); Chloride 103 mmol/L (98-107); Creatinine Clr Calc Pharmacy 84.6600; Globulin 2.9 g/dL (1.3-4.6); Glucose 134 mg/dL (65-115); Lipase 33 U/L (13-60); Osmolality Calculated 293 mOsm/kg (285-295); Potassium 3.6 mmol/L (3.5-5.1); Sodium 141 mmol/L (136-145); Total Protein 7.2 g/dL (6.6-8.7)
[2025-03-15] MEDS: ondansetron 2 mg/ML SDV 2 mL 4 MG IVP (11:47)
[2025-03-15 11:48] LABS: HCG, Serum Qual Negative (Negative)
[2025-03-15] MEDS: lidocaine 2% viscous 15 ML, aluminum-mag hydrox-simethicon 30 ML, sucralfate oral liq 1 GM PO (11:48)
[2025-03-15 11:51] VITALS: BP 108/69; PULSE 66; RESP 16; O2SAT 99
[2025-03-15 12:18] VITALS: BP 101/64; PULSE 70; RESP 16; O2SAT 100
[2025-03-15 12:23] LABS: Glucose Urine UA Negative (Normal); Nitrate Urine Negative (Negative); Specific Gravity, Urine 1.022 (1.005-1.030)
[2025-03-15 12:28] LABS: Add Urine Microscopic? YES
--- NOTE | 2025-03-16 07:06 | DCPLANNER ---
messaged gen surg for er f/u
== END 2025-03-15 12:27 | disposition home or self-care (01) ==
PROVIDERS: Emergency Provider Emergency Medicine; PCP Clinical Nurse Specialist Adult Health
DX: R10.9 Unspecified abdominal pain (principal); Z87.891 Personal history of nicotine dependence
CPT/HCPCS: 36415; 80053; 81001; 83690; 84703; 85025; 96374; 99284; J2405; J9999

== ENCOUNTER 2025-05-02 07:17 | Day surgery (SDC) | payer BC, MEDICAID, SELFPAY ==
[2025-05-02 07:36] VITALS: BP 93/57; PULSE 70; RESP 16; TEMP 36.2; O2SAT 99; BMI 18.4
--- NOTE | 2025-05-02 07:56 | ANES.PREANE2 ---
Pre-Anesthetic Assessment Height/Weight: Height 1.65 m Weight 50.349 kg Temp Pulse Resp BP Pulse Ox O2 Del Method 97.2 F L 70 16 93/57 99 Room Air 05/02/25 07:36 05/02/25 07:36 05/02/25 07:36 05/02/25 07:36 05/02/25 07:36 05/02/25 07:36 Operation Date: 05/02/25 09:00 Proposed Procedures p EGD EGD with Biopsy 27286 K21.9(Not Applicable) - Eh Carter MD Familial anesthetic complications: none Was Beta Ruiz taken within 24 hours: N/A Was Clonidine taken within 24 hours: Yes Last intake: Intake Last Liquid Date 05/01/25 Last Liquid Time 17:30 Last Solid Date 05/01/25 Last Solid Time 17:00 Social No alcohol and No tobacco daily marajuana smoker Exam alert and oriented x 3 Airway Submandibular: within normal limits Cervical ROM: within normal limits Mallampati: Class I Dentition: false (uppers) History/ROS No significant history except as noted CV/HEM None reported None reported Hepatic None reported GI Gastroesophageal Reflux Disease Metabolic None reported Musc/skel None reported Neuropsych Anxiety, Bipolar and Depression Anesthetic Plan ASA status: 2 Anesthesia: Anesthesia Evaluation and MAC Risk of > 500 ml blood loss (7ml/kg in children): No Medications/Allergies Home Medications ?Medication ?Instructions ?Recorded ?Confirmed ?Last Taken ?Type ondansetron 4 mg disintegrating 4 mg PO Q6H PRN nausea and 03/15/25 05/02/25 Unknown Rx tablet vomiting #14 tabs clonazepam 2 mg tablet 2 mg PO QAM PRN panic/anxiety #30 03/23/25 05/02/25 04/30/25 Rx tabs lurasidone 80 mg tablet (Latuda) 80 mg PO DAILY 04/27/25 05/02/25 05/01/25 History pantoprazole 40 mg tablet,delayed 40 mg PO BID 30 days #60 tabs 04/27/25 05/02/25 05/02/25 Rx release (Protonix) lurasidone 20 mg tablet (Latuda) 20 mg PO DAILY 05/02/25 05/02/25 05/01/25 History vortioxetine 20 mg tablet 20 mg PO DAILY 05/02/25 05/02/25 05/02/25 History (Trintellix) Allergies Allergy/AdvReac Type Severity Reaction Status Date / Time No Known Allergies Allergy Verified 05/02/25 07:33 Current Medications Generic Name Dose Route Start Last Admin Trade Name Freq PRN Reason Stop Dose Admin Sodium Chloride 1,000 mls @ 15 mls/hr 05/02/25 07:32 05/02/25 07:43 Sodium Chloride 0.9% IV 05/03/25 07:31 15 mls/hr .Q24H PRN Administration COLONOSCOPY FLUIDS PFSH Anesthesia Medical History Cholelithiasis Mammogram declined GERD (gastroesophageal reflux disease) Hepatomegaly Major depressive disorder, recurrent episode Major depressive disorder, recurrent, in partial remission Psychiatric care Bipolar disorder Panic disorder [episodic paroxysmal anxiety] Cannabis dependence, uncomplicated Major depressive disorder, recurrent severe without psychotic features Surgical History Hx of esophagogastroduodenoscopy 05/2022-gastritis H Pylori negative Hx of colonoscopy 05/2022-next one in 10 years Hx of lymph node excision LEFT GROIN AGE 18 History of hysterectomy complete hysterectomy for benign reasons. Family History Mother Diabetes Social History Smoking and tobacco/nicotine status: former use of tobacco/nicotine Alcohol intake: never
--- NOTE | 2025-05-02 08:54 | W.PM.OPSUD ---
Surgery/Procedure H&P Update DATE OF PROCEDURE: May 02, 2025 DATE H&P PERFORMED: 04/27/25 H&P UPDATE INFORMATION: I have reviewed H&P completed within last 30 days, I have examined patient prior to procedure, No changes to prior documentation and Risks and benefits of the procedure reviewed PLANNED PROCEDURE: Operation Date: 05/02/25 09:00 Proposed Procedures p EGD EGD with Biopsy 73910 K21.9(Not Applicable) - Eh Carter MD
[2025-05-02 09:16] VITALS: BP 107/56; PULSE 74; RESP 21; TEMP 36.2; O2SAT 96
[2025-05-02 09:25] VITALS: BP 103/69; PULSE 67; RESP 16; O2SAT 99
[2025-05-02 09:45] VITALS: BP 106/70; PULSE 66; RESP 16; O2SAT 99
--- NOTE | 2025-05-02 09:47 | ANE.PACU2 ---
Inpatient post-anesthesia follow up: Airway intact: Yes Vital signs: Temperature 97.2 F Pulse Rate 66 Respiratory Rate 16 Blood Pressure 106/70 Pulse Oximetry 99 Oxygen Delivery Me thod Room Air Oxygen Flow Rate Fraction of Inspir ed Oxygen Hydration adequate: Yes Nausea and vomiting: No Pain level: 1 Mental status: Baseline
== END 2025-05-02 09:47 | disposition home or self-care (01) ==
PROVIDERS: PCP Clinical Nurse Specialist Adult Health; Visit Provider Student in an Organized Health Care Education/Training Program
PROC: 0DJ08ZZ Inspection of Upper Intestinal Tract, Via Natural or Artificial Opening Endoscopic (ICD-10-PCS; principal; 2025-05-02 09:00)
DX: R12 Heartburn (principal); K29.40 Chronic atrophic gastritis without bleeding; K21.9 Gastro-esophageal reflux disease without esophagitis; F12.90 Cannabis use, unspecified, uncomplicated; Z87.891 Personal history of nicotine dependence; F33.9 Major depressive disorder, recurrent, unspecified
CPT/HCPCS: 43239; 88305; 88342; J2704; J7030

== ENCOUNTER → 2025-06-20 09:39 | Outpatient (BNVA) | payer BC, MEDICAID, SELFPAY | PROVIDERS: PCP Clinical Nurse Specialist Adult Health; Visit Provider Nurse Practitioner Psychiatric/Mental Health | DX: Z79.899 Other long term (current) drug therapy (principal) | CPT/HCPCS: 80053 ==